=== PATIENT | female | born 1985 | race Caucasian/White ===

== ENCOUNTER 2018-04-05 10:32 | Emergency (ER) | payer OTHER ==
[2018-04-05 10:32] VITALS: BMI 45.0
[2018-04-05 11:56] VITALS: BP 111/71; PULSE 75; RESP 19; TEMP 98.4; O2SAT 100
--- NOTE | 2018-04-05 12:43 | ED PDOC ---
HPI: General Adult Time Seen by Provider: 04/05/18 11:38 Chief Complaint (Nursing): Breast Problem Chief Complaint (Provider): Breast Problem History Per: Vamp Marker ([id number]) Onset/Duration Of Symptoms: Days (x couple months) Additional Complaint(s): Elen Gongora is a 32 year old female with no past medical history, who presents to the emergency department for left breast pain, onset past couple months. Patient states she has also been noticing that she also gets bone pain in the afternoons. Patient describes pain as mild and with no redness. She further denies swelling or discharge from nipples or changes in the skin or shape of breasts. Patient states she has tried to see doctor in the past but was unable to because she has no insurance and was thus told to come to the ED. PMD: No provider Past Medical History Reviewed: Historical Data, Nursing Documentation, Vital Signs Vital Signs: Last Vital Signs Temp 98.4 F 04/05/18 11:53 Pulse 75 04/05/18 11:53 Resp 19 04/05/18 11:53 BP 111/71 04/05/18 11:53 Pulse Ox 100 04/05/18 11:53 - Medical History PMH: Back Problems (herniated disc l4 l5) Denies: Chronic Kidney Disease - Surgical History Surgical History: No Surg Hx - Family History Family History: States: Unknown Family Hx - Immunization History Hx Tetanus Toxoid Vaccination: No Hx Influenza Vaccination: No Hx Pneumococcal Vaccination: No - Home Medications Home Medications: Ambulatory Orders Medication Instructions Recorded Famotidine [Pepcid] 20 mg PO DAILY #0 tab 12/04/15 Ibuprofen [Advil] 400 mg PO PRN PRN 04/05/18 Naproxen 500 mg PO BID #60 tab 04/05/18 - Allergies Allergies/Adverse Reactions: Allergies Allergy/AdvReac Type Severity Reaction Status Date / Time No Known Allergies Allergy Verified 02/05/15 14:31 Review of Systems ROS Statement: Except As Marked, All Systems Reviewed And Found Negative Cardiovascular: Positive for: Other (mild left breast pain) Musculoskeletal: Positive for: Other (bone pain) Physical Exam - Reviewed Nursing Documentation Reviewed: Yes Vital Signs Reviewed: Yes - Physical Exam Appears: Positive for: Non-toxic, No Acute Distress Head Exam: Positive for: ATRAUMATIC, NORMOCEPHALIC Skin: Positive for: Normal Color, Warm, Dry Eye Exam: Positive for: Normal appearance, EOMI, PERRL ENT: Positive for: Normal ENT Inspection Neck: Positive for: Normal, Painless ROM. Negative for: Supple Cardiovascular/Chest: Positive for: Regular Rate, Rhythm, Other (both breasts are symmetric; no erythema to left breast and no palpable mass; no abnormalities of the nipple or discharge; pain not worsened on palpation). Negative for: Murmur Respiratory: Positive for: Normal Breath Sounds. Negative for: Respiratory Distress Gastrointestinal/Abdominal: Positive for: Normal Exam, Soft. Negative for: Tenderness Back: Positive for: Normal Inspection. Negative for: L CVA Tenderness, R CVA Tenderness, Vertebral Tenderness Extremity: Positive for: Normal ROM. Negative for: Pedal Edema, Deformity Lymphatic: Positive for: Other (no lymph node tenderness). Negative for: Axilla Node Tenderness Neurologic/Psych: Positive for: Alert, Oriented (x3). Negative for: Motor/Sensory Deficits - ECG O2 Sat by Pulse Oximetry: 100 (RA) Pulse Ox Interpretation: Normal Medical Decision Making Medical Decision Making: Initial Time: 11:38 A/P: Patient's breast pain is without likely source of infection with no palpable mass. Patient is to be referred to clinic and information was given for [facility] and the information was given to get a mammogram through [facility]. Provider discussed return parameters for skin changes, nipple changes, fever, redness or acutely worsening symptoms. Scribe Attestation: Documented by Nitish Song, acting as a scribe for Cherie Barriga MD. Provider Scribe Attestation: All medical record entries made by the Scribe were at my direction and personally dictated by me. I have reviewed the chart and agree that the record accurately reflects my personal performance of the history, physical exam, medical decision making, and the department course for this patient. I have also personally directed, reviewed, and agree with the discharge instructions and disposition. Disposition - Clinical Impression Clinical Impression: Pain of breast - Disposition Referrals: [facility] [Outside] [facility] [Outside] Disposition Time: 12:10 Condition: STABLE Additional Instructions: Take Naproxen twice per day for pain. Return to the emergency department if symptoms worsen. Discuss obtaining a mammogram through [facility]. Prescriptions: Naproxen 500 mg PO BID #60 tab Instructions: Common Breast Problems Forms: [facility] (Romansh), [facility] ([place]serratian) Print Language: DANISH
== END 2018-04-05 12:11 | disposition home or self-care (01) ==
LOC: H.ER 10:32
DX: N64.4 Mastodynia (principal)

== ENCOUNTER 2018-08-10 15:43 | Emergency (ER) | payer SELFPAY ==
[2018-08-10 15:43] VITALS: BMI 45.0
[2018-08-10 16:01] VITALS: RESP 16; O2SAT 100
[2018-08-10] MEDS ORDERED: Iohexol 240 (50 ml) PO ONE (16:25)
[2018-08-10] MEDS ORDERED: Sodium Chloride 0.9% 1,000 ML IV STA (16:25)
--- NOTE | 2018-08-10 16:36 | ED PDOC ---
HPI: Abdomen Time Seen by Provider: 08/10/18 16:10 Chief Complaint (Nursing): Abdominal Pain Chief Complaint (Provider): Abdominal pain History Per: Patient History/Exam Limitations: no limitations Onset/Duration Of Symptoms: Days (1 week) Outside of [place] travel?: No Current Symptoms Are (Timing): Still Present Location Of Pain/Discomfort: Diffuse Quality Of Discomfort: "Pain" Associated Symptoms: Nausea, Loss Of Appetite. denies: Fever, Chills, Vomiting, Diarrhea, Back Pain, Chest Pain, Constipation, Urinary Symptoms Additional History Per: Patient Additional Complaint(s): 33yo female, otherwise well, comes to ER reporting diffuse abdominal pain for the past week. Patient reports associated nausea x 3 days but denies any vomiting, diarrhea or constipation. She denies any fever, chills, chest pain or shortness of breath. She reports associated dysuria, denies any hematuria or vaginal bleeding. She also reports dizziness, but denies any headache, weakness, or numbness. Patient denies any recent travels or known sick contacts. She has never had such symptoms before. No additional complaints. PMD: Robby Lund Past Medical History Reviewed: Historical Data, Nursing Documentation, Vital Signs Vital Signs: Last Vital Signs Temp 98.6 F 08/10/18 15:58 Pulse 92 H 08/10/18 15:58 Resp 16 08/10/18 15:58 BP 108/67 08/10/18 15:58 Pulse Ox 100 08/10/18 15:58 - Medical History PMH: Back Problems (herniated disc l4 l5) Denies: Chronic Kidney Disease - Surgical History Other surgeries: hysterectomy - Family History Family History: States: No Known Family Hx, Unknown Family Hx - Living Arrangements Living Arrangements: With Family - Immunization History Hx Tetanus Toxoid Vaccination: No Hx Influenza Vaccination: No Hx Pneumococcal Vaccination: No - Home Medications Home Medications: Ambulatory Orders Medication Instructions Recorded Famotidine [Pepcid] 20 mg PO DAILY #0 tab 12/04/15 Ibuprofen [Advil] 400 mg PO PRN PRN 04/05/18 Naproxen 500 mg PO BID #60 tab 04/05/18 traMADol [Ultram] 50 mg PO BID PRN #15 tab 05/03/18 - Allergies Allergies/Adverse Reactions: Allergies Allergy/AdvReac Type Severity Reaction Status Date / Time No Known Allergies Allergy Verified 08/10/18 15:58 Review of Systems ROS Statement: Except As Marked, All Systems Reviewed And Found Negative Constitutional: Negative for: Fever, Chills Cardiovascular: Negative for: Chest Pain Respiratory: Negative for: Shortness of Breath Gastrointestinal: Positive for: Nausea, Abdominal Pain. Negative for: Vomiting, Diarrhea, Constipation Genitourinary Female: Positive for: Dysuria. Negative for: Frequency, Incontine nce, Hematuria, Vaginal Discharge, Vaginal Bleeding Neurological: Positive for: Dizziness. Negative for: Weakness, Numbness, Headache Physical Exam - Reviewed Nursing Documentation Reviewed: Yes Vital Signs Reviewed: Yes - Physical Exam Appears: Positive for: Non-toxic, No Acute Distress Head Exam: Positive for: ATRAUMATIC, NORMAL INSPECTION, NORMOCEPHALIC Skin: Positive for: Normal Color, Warm, Dry Eye Exam: Positive for: EOMI, PERRL ENT: Negative for: Pharyngeal Erythema Neck: Positive for: Normal, Painless ROM, Supple Cardiovascular/Chest: Positive for: Regular Rate, Rhythm. Negative for: Murmur Respiratory: Positive for: Normal Breath Sounds. Negative for: Wheezing, Respiratory Distress Pulses-Radial (L): 2+ Pulses-Radial (R): 2+ Gastrointestinal/Abdominal: Positive for: Soft, Tenderness (diffuse). Negative for: Mass, Distended, Guarding, Rebound Back: Positive for: Normal Inspection. Negative for: L CVA Tenderness, R CVA Tenderness Extremity: Positive for: Normal ROM. Negative for: Tenderness, Pedal Edema, Deformity Neurologic/Psych: Positive for: Alert, Oriented. Negative for: Motor/Sensory Deficits - Laboratory Results Result Diagrams: 08/10/18 16:35 08/10/18 17:35 Lab Results: no acute - ECG O2 Sat by Pulse Oximetry: 100 (RA) Pulse Ox Interpretation: Normal - Progress ED Course And Treament: 1847: Dr. Donovan to fu on ct. Stable. Medical Decision Making Medical Decision Making: Impression: Abdominal pain Plan: -- Labs -- UDip -- Upreg -- Pepcid 20mg IV -- Zofran 4mg IV -- IV fluids -- CT Abdomen/Pelvis w/ PO & IV contrast Scribe Attestation: Documented by Claire Soriano acting as a scribe for Lionel Reyes MD Provider Attestation: All medical record entries made by the Scribe were at my direction and personally dictated by me. I have reviewed the chart and agree that the record accurately reflects my personal performance of the history, physical exam, medical decision making, and the department course for this patient. I have also personally directed, reviewed, and agree with the discharge instructions and disposition. Disposition - Clinical Impression Clinical Impression: Abdominal pain - Patient ED Disposition Is Patient to be Admitted: Transfer of Care - Disposition Disposition: Transfer of Care Disposition Time: 18:49 Condition: STABLE Patient Signed Over To: David Donovan
[2018-08-10] MEDS ORDERED: Iohexol 240 (50 ml) ONE ×2 (16:42→19:39)
[2018-08-10 16:59] LABS: BASO # 0.1 K/uL (0.0-0.2); BASO % 1.1 % (0.0-2.0); EOS # 0.1 K/uL (0.0-0.7); EOS % 0.9 % (0.0-4.0); HEMOGLOBIN 13.2 g/dL (12.0-16.0); LYMPH # 1.8 K/uL (1.0-4.3); LYMPH % 28.2 % (20.0-40.0); MEAN CELL VOLUME 92.6 fl (81.0-99.0); MEAN CORPUSCULAR HEMOGLOBIN 31.3 pg (27.0-31.0); MEAN CORPUSCULAR HGB CONC 33.8 g/dL (33.0-37.0); MONO # 0.4 K/uL (0.0-0.8); MONO % 6.3 % (0.0-10.0); NEUT # 4.1 K/uL (1.8-7.0); NEUT % 63.5 % (50.0-75.0); RBC 4.21 Mil/uL (3.80-5.20); RED CELL DISTRIBUTION WIDTH 12.5 % (11.5-14.5); WHITE BLOOD COUNT 6.4 K/uL (4.8-10.8)
[2018-08-10 18:09] LABS: ALBUMIN 4.1 g/dL (3.5-5.0); ALT/SGPT 18 U/L (9-52); AST/SGOT 23 U/L (14-36); BLOOD UREA NITROGEN 7 mg/dl (7-17); CALCIUM 9.4 mg/dL (8.4-10.2); GFR NON-AFRICAN AMERICAN > 60; LIPASE 78 U/L (23-300)
[2018-08-10 18:13] LABS: ALB/GLOB RATIO 1.1 (1.0-2.1)
[2018-08-10] MEDS ORDERED: Sodium Chloride 0.9% 50 ML IV ONE (18:59)
[2018-08-10] MEDS ORDERED: Iohexol 300 100 ML IJ ONE (18:59)
--- NOTE | 2018-08-10 19:07 | ED PDOC ---
- Laboratory Results Result Diagrams: 08/10/18 16:35 08/10/18 17:35 Lab Results: Total Bilirubin 0.4 mg/dl (0.2-1.3) 08/10/18 17:35 AST 23 U/L (14-36) 08/10/18 17:35 ALT 18 U/L (9-52) 08/10/18 17:35 Alkaline Phosphatase 69 U/L (38-126) 08/10/18 17:35 Total Protein 7.9 G/DL (6.3-8.2) 08/10/18 17:35 Albumin 4.1 g/dL (3.5-5.0) 08/10/18 17:35 Globulin 3.8 gm/dL (2.2-3.9) 08/10/18 17:35 Albumin/Globulin Ratio 1.1 (1.0-2.1) 08/10/18 17:35 Lipase 78 U/L (23-300) 08/10/18 17:35 - ECG O2 Sat by Pulse Oximetry: 100 (RA) Pulse Ox Interpretation: Normal Medical Decision Making Medical Decision Making: Time: 0700 Patient endorsed to me by Dr. Reyes pending CT scan and disposition. 9:00 EXAM: CT Abdomen and Pelvis with IV and oral contrast. CLINICAL HISTORY: Abd pain TECHNIQUE: Axial computed tomography images of the abdomen and pelvis with intravenous contrast. 721.22 mGy-cm CONTRAST: With; [id number] 95ML COMPARISON: None provided. FINDINGS: LUNG BASES: The lung bases appear clear. No pleural effusions are seen. LIVER: Unremarkable. GALLBLADDER AND BILE DUCTS: The gallbladder appears within normal limits. No radioopaque gallstones are seen. No biliary ductal dilatation is evident. PANCREAS: Unremarkable. SPLEEN: Unremarkable. ADRENAL GLANDS: Unremarkable. KIDNEYS, URETERS, AND BLADDER: The kidneys appear within normal limits. There is no hydronephrosis or hy droureter. No urinary calculi are seen. The urinary bladder is normal in size and configuration. STOMACH AND BOWEL: Unremarkable appearance of the stomach and bowel. No evidence of bowel obstruction. No evidence suggesting enteritis or colitis. The left hemicolon is predominantly decompressed. APPENDIX: No evidence of acute appendicitis on CT examination. PERITONEUM: No free fluid. No free air. LYMPH NODES: No lymphadenopathy is evident. REPRODUCTIVE: A 1.5 x 1.4 cm ovoid shaped hypodense lesion with a surrounding enhancing rim is seen in the right adnexal region thought compatible with a small right ovarian cyst. A 1.8 x 2.2 cm cyst is identified in the left ovary. VASCULATURE: No evidence of abdominal aortic aneurysm. BONES: No aggressive appearing osseous lesion. No acute osseous pathology evident. IMPRESSION: 1. Bilateral ovarian cysts are identified as described above. Electronically signed on Aug 10, 2018 8:48:41 PM EST by: Oswald Harrison M.D., CORNELIUS Certified By [facility] Fellowship Trained MRI and CT Specialist Used NAVEEN Layne, certified sand cutting machine operator, to give results to patient. Advised of results. Patient appearing very well, states she's feeling well. States she has had difficulty menses due to pain. Advised patient that she needs to followup with [facility] for evaluation and possible OCPs. Very well appearing upon discharge. Scribe Attestation: Documented by Mariangel Forde acting as a scribe for David Donovan MD. Provider Attestation: All medical record entries made by the Scribe were at my direction and personally dictated by me. I have reviewed the chart and agree that the record accurately reflects my personal performance of the history, physical exam, medical decision making, and the department course for this patient. I have also personally directed, reviewed, and agree with the discharge instructions and disposition. Disposition - Clinical Impression Clinical Impression: Abdominal pain, Ovarian cyst - POA Present On Arrival: None - Disposition [facility] Disposition: Routine/Home Disposition Time: 21:05 Condition: IMPROVED Instructions: Ovarian Cysts, Acute Abdomen (Belly Pain) Forms: [employer] (Welsh) Print Language: MALTESE
[2018-08-10 21:21] VITALS: BP 116/70; PULSE 84; TEMP 98.2
--- NOTE | 2018-08-11 10:48 | CT ---
Date of service: 08/10/2018 PROCEDURE: CT Abdomen and Pelvis with contrast HISTORY: abd pain COMPARISON: Not available TECHNIQUE: Contrast dose: 95 mL Omnipaque 300 Radiation dose: Total exam DLP = 721.22 mGy-cm. This CT exam was performed using one or more of the following dose reduction techniques: Automated exposure control, adjustment of the mA and/or kV according to patient size, and/or use of iterative reconstruction technique. FINDINGS: LOWER THORAX: Unremarkable. LIVER: Unremarkable. No gross lesion or ductal dilatation. GALLBLADDER AND BILE DUCTS: Unremarkable. PANCREAS: Unremarkable. No gross lesion or ductal dilatation. SPLEEN: Unremarkable. ADRENALS: Unremarkable. No mass. KIDNEYS AND URETERS: 1.3 cm nonspecific low-attenuation lesion upper pole right kidney. No calculus or hydronephrosis. VASCULATURE: Unremarkable. No aortic aneurysm. No aortic atherosclerotic calcification or mural plaque present. BOWEL: Unremarkable. No obstruction. No gross mural thickening. APPENDIX: Normal appendix. PERITONEUM: Unremarkable. No free fluid. No free air. LYMPH NODES: Unremarkable. No enlarged lymph nodes. BLADDER: Unremarkable. REPRODUCTIVE: Unremarkable uterus. Irregularly shaped peripherally enhancing lesion in right ovary, 2.4 cm, likely involuting or ruptured follicular cyst. 2.3 cm left ovarian cyst noted peer BONES: No acute fracture. OTHER FINDINGS: None. IMPRESSION: Probable involuting or ruptured right ovarian follicular cyst. 2.3 cm left ovarian cyst. The remainder of the examination is unremarkable. The preliminary findings for this examination were reported by [facility] at 8:48 p.m. on 08/10/2018. There is concurrence of this report with the preliminary findings.
== END 2018-08-10 21:21 | disposition home or self-care (01) ==
LOC: H.ER 15:43
DX: R10.9 Unspecified abdominal pain (principal); N83.201 Unspecified ovarian cyst, right side; N83.202 Unspecified ovarian cyst, left side; Z90.710 Acquired absence of both cervix and uterus
CPT/HCPCS: 74177; 80053; 81025; 83690; 85025; 96374; 99284; J2405; J7030; Q9966; Q9967